=== PATIENT | male | born 1955 | race Caucasian/White ===

== ENCOUNTER 2020-04-23 06:53 | Outpatient (NON) | payer OTHER, SELFPAY ==
[2020-04-24 13:43] LABS: SARS-CoV-2 RNA PCR Positive
== END 2020-04-23 06:54 ==
PROVIDERS: PCP Family Medicine; Visit Provider Physician Assistant Medical
DX: U07.1 COVID-19 (principal)
CPT/HCPCS: 87635; C9803; U0003

== ENCOUNTER 2020-10-05 13:58 | Outpatient (CLI) | payer OTHER, SELFPAY ==
[2020-10-05 14:25] LABS: Cholesterol 267 mg/dL (0-200); HDL Direct 37 mg/dL; Triglycerides 495 mg/dL (<150)
[2020-10-05 14:36] LABS: LDL Cholesterol Direct 153 mg/dL
== END 2020-10-05 13:59 | disposition home or self-care (01) ==
PROVIDERS: PCP Family Medicine; Visit Provider Internal Medicine Cardiovascular Disease
DX: E11.69 Type 2 diabetes mellitus with other specified complication (principal); E78.5 Hyperlipidemia, unspecified
CPT/HCPCS: 36415; 80061

== ENCOUNTER → 2020-10-29 02:15 | Outpatient (CLI) | payer OTHER, SELFPAY ==
[2020-10-29 18:15] LABS: SARS-CoV-2 RNA PCR Negative
== END ==
PROVIDERS: PCP Family Medicine; Visit Provider Internal Medicine Cardiovascular Disease
DX: Z01.812 Encounter for preprocedural laboratory examination (principal); Z20.822 Contact with and (suspected) exposure to COVID-19
CPT/HCPCS: C9803; U0003; U0005

== ENCOUNTER 2020-11-01 01:01 | Day surgery (SDC) | payer OTHER, SELFPAY ==
[2020-10-29 13:59] VITALS: BMI 29.3
[2020-11-01] VITALS (21 sets, daily range): BP systolic 84–140; BP diastolic 55–91; PULSE 41–74; RESP 13–21; TEMP 35.9–36.5; O2SAT 94–100; BMI 28.7
--- NOTE | 2020-11-01 08:30 | SUR.PREOP ---
ARRIVES AMBULATORY TO [facility] W/ AT SIDE FOR SCHEDULED LHC W/ DR. COLE. DENIES CP OR SOB ON ARRIVAL. ORIENTED TO ROOM, PLAN OF CARE, PROCEDURE. QUESTIONS ANSWERED. IV STARTED, LABS SENT, VS OBTAINED, SKIN PREPPED, CONSENT SIGNED. WILL CONTINUE TO MONITOR.
[2020-11-01 09:13] LABS: Basophils Percent Auto 0.4 % (0.2-1.2); Eosinophils Absolute Auto 0.1 K/mm3 (0-0.3); Eosinophils Percent Auto 2.6 % (0-4.4); Hematocrit 42.7 % (42.0-52.0); Hemoglobin 14.3 g/dL (14.0-18.0); Immature Granulocyte Absolute 0.02 K/mm3 (0.00-0.031); Immature Granulocyte Percent A 0.4 % (0-0.5); Lymphocytes Absolute Auto 1.65 K/mm3 (0.9-3.2); Lymphocytes Percent Auto 35.3 % (18.3-44.2); Mean Corpuscular HGB Conc 33.5 g/dl (32-36); Mean Corpuscular Hemoglobin 30.6 pg (26-34); Mean Corpuscular Volume 91.2 fl (80-100); Mean Platelet Volume 8.9 fl (7.4-10.4); Monocytes Absolute Auto 0.4 K/mm3 (0.1-0.6); Neutrophils Absolute Auto 2.5 K/mm3 (1.3-6.7); Neutrophils Percent Auto 52.3 % (45.5-73.1); Platelet Count Result 331 k/mm3 (150-375); Red Blood Count 4.68 M/mm3 (4.6-6.20); Red Cell Distribution Width 12.4 % (11.5-14.5); White Blood Count 4.7 K/mm3 (4.5-10.0)
[2020-11-01 09:22] LABS: Anion Gap 14 mmol/L (8-16); Blood Urea Nitrogen 23 mg/dL (9-20); Calcium 10.1 mg/dL (8.4-10.2); Carbon Dioxide 22 mmol/L (22-30); Chloride 101 mmol/L (98-107); Estimated CRCL calculation 71 ml/min; Estimated Glomerular Filt Rate > 60; Glucose 305 mg/dL (75-110); Potassium 4.5 mmol/L (3.4-5.0); Sodium 137 mmol/L (137-145)
--- NOTE | 2020-11-01 10:43 | WPDMODSED ---
Moderate Sedation Note-Pt Data Patient Data Diagnosis: Progressive angina, CAD Present Complaint: None Procedure to be performed/Plan: Left heart catheterization with selective left and right coronary angiography with left ventriculography and hemodynamics and possible percutaneous intervention and stent implantation. Allergies Allergy/AdvReac Type Severity Reaction Status Date / Time No Known Allergies Allergy Verified 11/01/20 09:42 Home Medications Medication Instructions Recorded Confirmed Type pen needle, diabetic 32 gauge x #100 each 08/06/19 Rx fenofibrate 160 mg tablet 160 mg PO DAILY #90 tablet 07/03/20 11/01/20 Rx lisinopril 20 1 tablet PO DAILY #90 tablet 08/19/20 11/01/20 Rx mg-hydrochlorothiazide 12.5 mg tablet insulin glargine U-300 conc 300 60 unit SUB-Q DAILY #15 ml 08/28/20 11/01/20 Rx unit/mL (1.5 mL) subcutaneous pen metformin 1,000 mg tablet 1,000 mg PO BID #180 tablet 09/08/20 11/01/20 Rx isosorbide mononitrate 30 mg PO DAILY 10/29/20 11/01/20 History metoprolol tartrate 25 mg PO BID 10/29/20 11/01/20 History aspirin [Adult Low Dose Aspirin] 81 mg PO DAILY 11/01/20 11/01/20 History rosuvastatin [Crestor] 40 mg PO DAILY 11/01/20 11/01/20 History Current Medications: Active Medications Sodium Chloride (Normal Saline Iv) 500 mls @ 100 mls/hr IV CONT .Q5H CARMINA Sedation/Anesthesia: No previous sedation/anesthesia problems (including family history). [facility] Past Medical History Medical History Coronary artery disease involving [place] artery of transplanted heart Mixed hyperlipidemia Type 2 diabetes mellitus without complications Family History Family History Mother Family history of Alzheimer's disease Sibling Family history of malignant neoplasm of brain Patient's sister is Social History Social History Smoking status: Never smoker Second hand tobacco smoke exposure: No Alcohol intake: never Substance use: never Substance use type: does not use Living arrangements: with family Gender identity (if verbalized by the patient): Male Spiritual care concerns: No Mod Sed Physical Exam Physical Exam Pre Procedural Exam: Normal: Appearance, Eyes, Ears, Nose, Neck (Supple, normal range of motion), Throat (Posterior hypopharynx clear, nonerythematous), Airway (Normal anatomy, no obstruction), Lungs (Clear to auscultation bilaterally), Heart Size, Heart Rate, Heart Rhythm, Neuro Exam, Abdomen, Liver, Extremities and Skin Hours since solid foods: 12 Hours since liquid intake: 12 Internal Medicine - PN: Obj Da Vital Signs Vital Signs: Vital Signs - 24 hr 11/01/20 09:00 Temperature 36.4 C L Pulse Rate 61 Respiratory Rate 16 Blood Pressure 120/75 Pulse Oximetry 99 Meds/Results Medications: Active Medications Generic Name Dose Route Start Last Admin Trade Name Freq PRN Reason Stop Dose Admin Sodium Chloride 500 mls @ 100 mls/hr 11/01/20 08:30 Normal Saline Iv IV CONT .Q5H CARMINA Labs CBC & Chem 7: 11/01/20 08:54 11/01/20 08:54 Labs: Laboratory Results - last 24 hr 11/01/20 11/01/20 08:54 08:54 WBC 4.7 RBC 4.68 Hgb 14.3 Hct 42.7 MCV 91.2 MCH 30.6 MCHC 33.5 RDW 12.4 Plt Count 331 MPV 8.9 Immature Gran % (Auto) 0.4 Neut % (Auto) 52.3 Lymph % (Auto) 35.3 Addison % (Auto) 9.0 H Eos % (Auto) 2.6 Baso % (Auto) 0.4 Lymph # (Auto) 1.65 Addison # (Auto) 0.4 Eos # (Auto) 0.1 Baso # (Auto) 0.0 Abs Immat Gran (auto) 0.02 Absolute Neuts (auto) 2.5 Absolute Nucleated RBC 0.0 Nucleated RBC % 0.0 Sodium 137 Potassium 4.5 Chloride 101 Carbon Dioxide 22 Anion Gap 14 BUN 23 H Creatinine 1.00 Estim Creat Clear Calc 71 Estimated GFR > 60 Glucose 305 H Ca
--- NOTE | 2020-11-01 10:45 | WPDCARDPROC ---
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 CATHETERS UTILIZED: Left coronary system- 5 [place] JL4 catheter Right coronary system- 5 [place] JR4 catheter Left ventriculography and hemodynamics- 5 [place] angled pigtail catheter Procedure Procedure performed:: PROCEDURES PERFORMED: 1. Left heart catheterization 2. Selective left and right coronary angiography 3. Left ventriculography and hemodynamics 4. Moderate/conscious sedation administration Sedation/Medication given:: MODERATE SEDATION/ANESTHESIA ADMINISTRATION: Patient reports no prior problems with sedation/anesthesia. Please see pre-sedation noted for physical examination documentation. Sedation start time was 1111 and end time was 1207 for a total intra-service/procedure face-face time of 56 minutes. A total of 2 mg intravenous Versed and a total of 50 mcg intravenous Fentanyl was administered for moderate sedation. Moderate sedation was administered by qualified/certified observer Sugey Boswell RN under my supervision with intra-procedure [id number] observation and management throughout the entirety of the procedure. There were no other issues or complications and patient tolerated the procedure well. See post-anesthesia documentation. Access site:: Right femoral arterial access site Estimated blood loss:: 10 cc Findings:: PROCEDURE IN DETAIL: After verbal and written informed consent was obtained the patient, risks, benefits, and alternatives explained in detail the patient agreed to proceed with the plan of care as outlined above. The patient was subsequently brought to the cardiac catheterization lab, placed on the cardiac catheterization table, and prepped and draped in the usual sterile fashion. Utilizing approximately 15cc of 1% subcutaneous Lidocaine, the right groin was then locally anesthetized. Utilizing the modified Seldinger technique, a 5 [place] arterial vascular access sheath was inserted in the right common femoral artery easily and without complications. Through this access, coronary angiography was subsequently obtained in multiple standard re-projections. Following this, a 5 [place] angled pigtail catheter was advanced retrograde across aortic valve into the cavity of the left ventricle. Left ventriculography was performed and pullback across aortic valve was subsequently recorded. The vascular access sheath and angiographic catheters were flushed before and after catheter exchanges. At the conclusion of the diagnostic portion of the procedure, all angiographic guidewires and catheters were removed and the 5 [place] arterial vascular access sheath was then pulled and satisfactory hemostasis was achieved using manual compression. There no complications noted at the conclusion of the diagnostic portion of the study. CORONARY ANGIOGRAPHY: The LEFT MAIN was of moderate caliber and arose from the left coronary cusp without angiographically significant disease. The left main then trifurcated into the left anterior descending artery, small Ramus Intermedius branch, and circumflex coronary artery. LEFT ANTERIOR DESCENDING ARTERY: Small to moderate caliber vessel extending to the LV apex heart bring proximal diffuse to 40% stenosis, diffuse calcification in the mid segment, 80% mid LAD stenosis just at the bifurcation of a moderate-sized 1st diagonal br
[2020-11-01 13:11] LABS: Glucose Point of Care 202 mg/dl (65-105)
--- NOTE | 2020-11-01 15:19 | SUR.PHASEII ---
1250 Pt having symptoms of vagal response to current sheath pull/hold, Dr. Ewing notified-1amp atropine and NS bolus given, cool wash clothes applied to face and neck, pt placed in trendelenberg position, pt responded well to medications and treatment, stated he started feeling better approx 10 minutes after meds, vitals also with improvement R groin sheath hold otherwise uncomplicated, site remained soft and nontender, no hematoma or bleeding noted. Dr. Ewing updated.
--- NOTE | 2020-11-01 16:35 | SUR.PHASEII ---
UP IN CHAIR. BP SOFT, BUT REPORTS NO DIZZINESS AT THIS TIME. R. GROIN SITE CLEAR. STAT SEAL AND TEGADERM DRESSING C/D/I. SITE SOFT, NONTENDER. NO BLEEDING OR HEMATOMA NOTED. NOTIFIED AGRICULTURAL SYSTEMS SPECIALIST [facility]. IVF'S RESUMED. WILL CONTINUE TO MONITOR.
--- NOTE | 2020-11-01 17:00 | SUR.PHASEII ---
BP UP TO 98/61 WHILE SITTING. TAKEN L. UPPER ARM. IVF'S CONTINUE. PT. DENIES PAIN, SOB, OR DIZZINESS. R. GROIN SITE SOFT, NONTENDER. NO BLEEDING OR HEMATOMA NOTED. WILL CONTINUE TO MONITOR.
--- NOTE | 2020-11-01 17:15 | SUR.PHASEII ---
BP WHILE STANDING UP TO 99/71 L. ARM. STEADY. REPORTS NO DIZZINESS OR LIGHTHEADEDNESS WHILE UP. NO CHANGE R. GROIN SITE STATUS. IVF'S COMPLETE. SPOKE W/ SWEEP MOLDER TALAT HOU; UPDATE GIVEN. SHE ADVISED PT. HOLD TONIGHT'S DOSE OF METOPROLOL TARTRATE AND RECHECK BP TONIGHT AND IN AM BEFORE TAKING BP MEDS. PT. GIVEN THESE VERBAL INSTRUCTIONS AND VOICED UNDERSTANDING OF ALL. PT. TO BE DISCHARGED HOME W/ .
--- NOTE | 2020-11-01 17:30 | SUR.PHASEII ---
DRESSING FOR DISCHARGE HOME. SPEEDER OPERATOR TALAT HOU CAME BY PT'S ROOM TO SEE BEFORE DISCHARGE AND TO CHECK PT. AWARE OF BP OF 99/71. PT WITHOUT COMPLAINT.
--- NOTE | 2020-11-01 17:40 | SUR.PHASEII ---
DISCHARGED HOME, OUT VIA WC WITH ALL PERSONAL BELONGINGS AND DISCHARGE PACKET, DISK, TO 'S WAITING CAR. STEADY. DENIES DIZZINESS WITH ACTIVITY. R. GROIN SITE REMAINS WITHOUT CHANGE, IS STABLE. DRESSING C/D/I. VOICES NO C/O. NO DISTRESS NOTED.
== END 2020-11-01 17:40 | disposition home or self-care (01) ==
PROVIDERS: PCP Family Medicine; Visit Provider Internal Medicine Cardiovascular Disease
PROC: 4A023N7 Measurement of Cardiac Sampling and Pressure, Left Heart, Percutaneous Approach (ICD-10-PCS; CPT 93452; principal; 2020-11-01 10:00)
DX: I25.119 Atherosclerotic heart disease of native coronary artery with unspecified angina pectoris (principal); R94.39 Abnormal result of other cardiovascular function study; R06.02 Shortness of breath; R53.83 Other fatigue; R07.89 Other chest pain; E78.2 Mixed hyperlipidemia; E11.9 Type 2 diabetes mellitus without complications; I10 Essential (primary) hypertension; E78.5 Hyperlipidemia, unspecified; Z79.4 Long term (current) use of insulin; Z79.84 Long term (current) use of oral hypoglycemic drugs; Z79.82 Long term (current) use of aspirin
CPT/HCPCS: 36415; 80048; 82948; 85025; 93458; C1887; C1894; C9803; J0461; J1644; J2250; J3010; J7030; J7040; U0003; U0005

== ENCOUNTER 2020-12-21 09:49 | Outpatient (NON) | payer OTHER, SELFPAY ==
[2020-12-21 10:12] LABS: Basophils Percent Auto 0.5 % (0.2-1.2); Eosinophils Absolute Auto 0.1 K/mm3 (0-0.3); Eosinophils Percent Auto 1.5 % (0-4.4); Hemoglobin 10.2 g/dL (14.0-18.0); Immature Granulocyte Absolute 0.03 K/mm3 (0.00-0.031); Immature Granulocyte Percent A 0.5 % (0-0.5); Lymphocytes Absolute Auto 1.24 K/mm3 (0.9-3.2); Lymphocytes Percent Auto 20.1 % (18.3-44.2); Mean Corpuscular HGB Conc 32.9 g/dl (32-36); Mean Corpuscular Hemoglobin 30.4 pg (26-34); Mean Corpuscular Volume 92.3 fl (80-100); Mean Platelet Volume 8.9 fl (7.4-10.4); Monocytes Absolute Auto 0.5 K/mm3 (0.1-0.6); Monocytes Percent Auto 7.5 % (2.6-8.5); Neutrophils Absolute Auto 4.3 K/mm3 (1.3-6.7); Neutrophils Percent Auto 69.9 % (45.5-73.1); Platelet Count Result 697 k/mm3 (150-375); Red Blood Count 3.36 M/mm3 (4.6-6.20); Red Cell Distribution Width 13.4 % (11.5-14.5); White Blood Count 6.2 K/mm3 (4.5-10.0)
[2020-12-21 10:14] LABS: Albumin Level 3.9 g/dL (3.5-5.1)
[2020-12-21 10:18] LABS: Alanine Aminotransferase 17 U/L (4-50); Alkaline Phosphatase 97 U/L (38-126); Anion Gap 12 mmol/L (8-16); Aspartate Amino Transferase 21 U/L (17-59); Bilirubin,Total 0.5 mg/dL (0.2-1.3); Blood Urea Nitrogen 23 mg/dL (9-20); Calcium 9.7 mg/dL (8.4-10.2); Carbon Dioxide 22 mmol/L (22-30); Chloride 100 mmol/L (98-107); Estimated Glomerular Filt Rate > 60; Glucose 259 mg/dL (65-110); Potassium 4.2 mmol/L (3.4-5.0); Sodium 134 mmol/L (137-145)
== END 2020-12-21 09:50 | disposition home or self-care (01) ==
PROVIDERS: PCP Family Medicine; Visit Provider Thoracic Surgery (Cardiothoracic Vascular Surgery)
DX: I25.10 Atherosclerotic heart disease of native coronary artery without angina pectoris (principal); E11.9 Type 2 diabetes mellitus without complications; I10 Essential (primary) hypertension; Z48.812 Encounter for surgical aftercare following surgery on the circulatory system
CPT/HCPCS: 80053; 85025